=== PATIENT | male | born 1970 | race Caucasian/White ===

== ENCOUNTER 2021-07-01 00:44 | Inpatient (IN) | payer MEDICARE ==
[2021-07-01] MEDS ORDERED: Bupivacaine 0.5% 50 ML MDV ONE (06:39)
[2021-07-01] MEDS ORDERED: Lidocaine 1% with EPINEPHrine 1:100,000 50 ML MDV ONE (06:39)
[2021-07-01] MEDS ORDERED: Meropenem 500 MG SDV ONE (06:57)
[2021-07-01] MEDS ORDERED: Glycopyrrolate 0.2 MG/ML 5 ML MDV ONE (07:08)
[2021-07-01] MEDS ORDERED: Propofol 200 MG/20 ML SDV ONE (07:08)
[2021-07-01] MEDS ORDERED: Rocuronium 50 MG/5 ML Vial ONE (07:08)
[2021-07-01] MEDS ORDERED: fentaNYL 250 MCG/5 ML SDV ONE ×2 (07:08→10:17)
[2021-07-01] MEDS ORDERED: Dexamethasone 4 MG/ML SDV ONE (07:08)
[2021-07-01] MEDS ORDERED: Neostigmine Methylsulfate 1 MG/ML 5 ML Syringe ONE (07:08)
[2021-07-01] MEDS ORDERED: Ondansetron 4 MG/2 ML SDV ONE (07:08)
[2021-07-01] MEDS ORDERED: Succinylcholine 200 MG/10 ML MDV ONE (07:08)
[2021-07-01] MEDS ORDERED: Albuterol/Ipratropium 3.0-0.5 MG/3 ML Neb Soln NEB ONE ×2 (07:13→12:30)
[2021-07-01] MEDS ORDERED: Acetaminophen 500 MG Tab PO ONE (07:15)
[2021-07-01] MEDS ORDERED: Dextrose 5%-Lactated Ringers 1,000 ML IV SCH (07:15)
[2021-07-01] MEDS ORDERED: Scopolamine 1.5 MG Transdermal Patch TOP ONE (07:16)
[2021-07-01] MEDS ORDERED: cefOXitin 2 GM in Sodium Chloride 0.9% 50 ML IV ONE (07:30)
[2021-07-01] MEDS ORDERED: Ketamine 23 MG in Sodium Chloride 0.9% 19.77 ML IV SCH (08:00)
[2021-07-01] MEDS ORDERED: Ketamine 500 MG/5 ML MDV IV SCH (08:00)
[2021-07-01] MEDS ORDERED: diphenhydrAMINE 25 MG Cap PO PRN (10:26)
[2021-07-01] MEDS ORDERED: Ondansetron 4 MG/2 ML SDV IVPUSH PRN ×2 (10:26→13:00)
[2021-07-01] MEDS ORDERED: diphenhydrAMINE 50 MG/ML SDV IVPUSH PRN ×2 (10:26→13:00)
[2021-07-01] MEDS ORDERED: Naloxone 0.4 MG/ML SDV IVPUSH PRN (10:26)
[2021-07-01] MEDS ORDERED: Labetalol 20 MG/4 ML Syringe ONE (10:48)
[2021-07-01] MEDS ORDERED: Lactated Ringers 1,000 ML ONE (10:50)
[2021-07-01] MEDS: HYDROmorphone/Normal Saline 6 MG/30 ML PCA Vial IV PRN ×2 (11:46→15:14)
[2021-07-01] MEDS ORDERED: hydrOXYzine HCL 100 MG/2 ML SDV IM ONE (12:24)
[2021-07-01] MEDS ORDERED: Labetalol 20 MG/4 ML Syringe IVPUSH PRN (13:00)
[2021-07-01] MEDS ORDERED: Metoclopramide 10 MG/2 ML SDV IVPUSH PRN (13:00)
[2021-07-01] MEDS ORDERED: Albuterol/Ipratropium 3.0-0.5 MG/3 ML Neb Soln INH PRN (13:00)
[2021-07-01] MEDS ORDERED: hydrOXYzine HCL 100 MG/2 ML SDV IM PRN (13:00)
[2021-07-01] MEDS ORDERED: Acetaminophen 500 MG Tab PO PRN (13:00)
[2021-07-01] MEDS: Cyclobenzaprine 10 MG Tab PO PRN (13:36)
[2021-07-01] MEDS ORDERED: Pantoprazole 40 MG Vial IVPUSH SCH (14:00)
[2021-07-01] MEDS: Acetaminophen 500 MG Tab PO SCH ×2 (14:43→21:27)
[2021-07-01] MEDS: Sodium Ferric Gluconate Cmplex 250 MG in Sodium Chloride 0.9% 100 ML IV SCH (14:45)
[2021-07-01] MEDS: Albuterol/Ipratropium 3.0-0.5 MG/3 ML Neb Soln INH SCH ×2 (14:49→22:30)
[2021-07-01] MEDS: SCOPOLAMINE PATCH CHECK TOP SCH (15:46)
[2021-07-01] MEDS: cefOXitin 2 GM in Sodium Chloride 0.9% 50 ML IV SCH ×2 (15:46→21:26)
[2021-07-01] MEDS ORDERED: Benzocaine/Cetylpyridinium/Menthol Lozenge MUCMEM PRN (16:09)
[2021-07-01] MEDS: MVI, Adult with Vitamin K 10 ML, Thiamine 200 MG, Zinc/Copper/Manganese/Selenium 1 ML i... IV SCH ×4 (17:04)
[2021-07-01] MEDS: Heparin Sodium 5,000 Units/ML Vial SUBCUT SCH (21:26)
[2021-07-01] MEDS: Dextrose 5%-Lactated Ringers 1,000 ML IV SCH (22:47)
[2021-07-02] MEDS: HYDROmorphone/Normal Saline 6 MG/30 ML PCA Vial IV PRN (02:17)
[2021-07-02] MEDS ORDERED: Iopamidol 612 MG/ML 50 ML SDV PO STA (03:19)
[2021-07-02] MEDS: cefOXitin 2 GM in Sodium Chloride 0.9% 50 ML IV SCH ×3 (03:21→15:59)
[2021-07-02] MEDS: Dextrose 5%-Lactated Ringers 1,000 ML IV SCH (05:03)
[2021-07-02] MEDS: Acetaminophen 500 MG Tab PO SCH ×3 (06:17→22:17)
[2021-07-02] MEDS: Albuterol/Ipratropium 3.0-0.5 MG/3 ML Neb Soln INH SCH ×4 (07:17→20:16)
[2021-07-02] MEDS ORDERED: Ondansetron 4 MG Tab.DIS PO PRN (07:36)
[2021-07-02] MEDS ORDERED: diphenhydrAMINE 25 MG Cap PO PRN (07:38)
[2021-07-02] MEDS ORDERED: Naloxone 0.4 MG/ML SDV IVPUSH PRN (07:38)
[2021-07-02] MEDS ORDERED: Morphine PF 30 MG/30 ML PCA Vial IV PRN (07:38)
[2021-07-02] MEDS ORDERED: diphenhydrAMINE 50 MG/ML SDV IVPUSH PRN (07:38)
[2021-07-02] MEDS ORDERED: Ondansetron 4 MG/2 ML SDV IVPUSH PRN (07:38)
[2021-07-02] MEDS ORDERED: Dextrose 5%-Lactated Ringers 1,000 ML IV SCH (07:45)
[2021-07-02] MEDS: Heparin Sodium 5,000 Units/ML Vial SUBCUT SCH ×2 (08:05→20:16)
[2021-07-02] MEDS: Celecoxib 200 MG Cap PO SCH ×2 (08:05→20:16)
[2021-07-02] MEDS: Potassium Phos in 0.9 % NaCl 15 MMOL in Premix Bag 1 BAG IV SCH ×4 (08:14→11:02)
[2021-07-02] MEDS: SCOPOLAMINE PATCH CHECK TOP SCH (09:30)
[2021-07-02] MEDS: Pantoprazole 40 MG Tab.CR PO SCH (11:42)
[2021-07-02] MEDS: Magnesium Sulfate/Water 2 GM in Premix Bag 1 BAG IV SCH ×3 (13:10→23:51)
[2021-07-02] MEDS: Sodium Ferric Gluconate Cmplex 250 MG in Sodium Chloride 0.9% 100 ML IV SCH (14:34)
[2021-07-02] MEDS: Bisacodyl 5 MG Tab PO SCH ×2 (15:52→20:16)
[2021-07-02] MEDS: Docusate Sodium 100 MG Cap PO SCH ×2 (15:52→20:16)
[2021-07-02] MEDS: oxyCODONE 5 MG Tab PO PRN (16:36)
[2021-07-02] MEDS: MVI, Adult with Vitamin K 10 ML, Thiamine 200 MG, Zinc/Copper/Manganese/Selenium 1 ML i... IV SCH ×4 (18:45)
[2021-07-02] MEDS: hydrOXYzine HCl 25 MG Tab PO PRN (18:45)
[2021-07-02] MEDS: Cyclobenzaprine 10 MG Tab PO PRN (20:15)
[2021-07-03] MEDS: oxyCODONE 5 MG Tab PO PRN ×2 (00:38→07:40)
[2021-07-03] MEDS: Acetaminophen 500 MG Tab PO SCH (05:01)
[2021-07-03] MEDS: Magnesium Sulfate/Water 2 GM in Premix Bag 1 BAG IV SCH (05:02)
[2021-07-03] MEDS: hydrOXYzine HCl 25 MG Tab PO PRN (05:11)
[2021-07-03] MEDS: Albuterol/Ipratropium 3.0-0.5 MG/3 ML Neb Soln INH SCH (07:05)
[2021-07-03] MEDS: Pantoprazole 40 MG Tab.CR PO SCH (07:41)
[2021-07-03] MEDS: Bisacodyl 5 MG Tab PO SCH (08:29)
[2021-07-03] MEDS: Celecoxib 200 MG Cap PO SCH (08:29)
[2021-07-03] MEDS: Heparin Sodium 5,000 Units/ML Vial SUBCUT SCH (08:29)
[2021-07-03] MEDS: Docusate Sodium 100 MG Cap PO SCH (08:42)
[2021-07-03] MEDS ORDERED: Cyanocobalamin (Vitamin B12) 1,000 MCG/ML SDV IM ONE (09:00)
[2021-07-03] MEDS: SCOPOLAMINE PATCH CHECK TOP SCH (09:00)
== END 2021-07-03 09:30 | disposition home or self-care (01) | DRG 329 ==
LOC: JP.SDS 07:00 → JP.MS 12:00 → EDSTATUS 13:30
PROVIDERS: ADMIT Surgery; ATTEND Surgery
PROC: 0DS80ZZ Reposition Small Intestine, Open Approach (ICD-10-PCS; principal; 2021-07-01)
PROC: 0DB80ZZ Excision of Small Intestine, Open Approach (ICD-10-PCS; 2021-07-01)
PROC: 0DNA0ZZ Release Jejunum, Open Approach (ICD-10-PCS; 2021-07-01)
PROC: 0WQF0ZZ Repair Abdominal Wall, Open Approach (ICD-10-PCS; 2021-07-01)
PROC: 3E0M05Z Introduction of Adhesion Barrier into Peritoneal Cavity, Open Approach (ICD-10-PCS; 2021-07-01)
DX: K95.89 Other complications of other bariatric procedure (principal); K56.2 Volvulus; K56.51 Intestinal adhesions [bands], with partial obstruction; K43.0 Incisional hernia with obstruction, without gangrene; K91.2 Postsurgical malabsorption, not elsewhere classified; E53.8 Deficiency of other specified B group vitamins; J45.909 Unspecified asthma, uncomplicated; M54.12 Radiculopathy, cervical region; Z86.718 Personal history of other venous thrombosis and embolism; Z86.711 Personal history of pulmonary embolism; Z87.891 Personal history of nicotine dependence
CPT/HCPCS: 36415; 74240; 74240-26; 80053; 83735; 83880; 84100; 85025; 94640; A9270-GY; C9113; J0171; J0330; J0694; J1100; J1170; J1200; J1644; J2020; J2185; J2274; J2405; J2704; J2710; J2795; J2916; J3010; J3410; J3411; J3420; J3475; J3490; J7120; J7121; J7620; Q9967

== ENCOUNTER 2022-01-06 05:19 | Inpatient (IN) | payer MEDICARE ==
[2022-01-06] MEDS ORDERED: Acetaminophen 500 MG Tab PO ONE (06:00)
[2022-01-06] MEDS ORDERED: Dextrose 5%-Lactated Ringers 1,000 ML IV SCH (06:45)
[2022-01-06] MEDS ORDERED: Bupivacaine 0.5% 50 ML MDV ONE (06:47)
[2022-01-06] MEDS ORDERED: Meropenem 500 MG SDV ONE (06:47)
[2022-01-06] MEDS ORDERED: Lidocaine 1% with EPINEPHrine 1:100,000 50 ML MDV ONE (06:47)
[2022-01-06] MEDS ORDERED: Scopolamine 1.5 MG Transdermal Patch TOP SCH (06:51)
[2022-01-06] MEDS ORDERED: Rocuronium 50 MG/5 ML Vial ONE (07:00)
[2022-01-06] MEDS ORDERED: Albuterol/Ipratropium 3.0-0.5 MG/3 ML Neb Soln NEB ONE (07:00)
[2022-01-06] MEDS ORDERED: Succinylcholine 200 MG/10 ML MDV ONE (07:00)
[2022-01-06] MEDS ORDERED: Neostigmine Methylsulfate 1 MG/ML 5 ML Syringe ONE (07:00)
[2022-01-06] MEDS ORDERED: Propofol 200 MG/20 ML SDV ONE (07:00)
[2022-01-06] MEDS ORDERED: Dexamethasone 4 MG/ML SDV ONE (07:00)
[2022-01-06] MEDS ORDERED: Glycopyrrolate 0.2 MG/ML 5 ML MDV ONE (07:00)
[2022-01-06] MEDS ORDERED: Ondansetron 4 MG/2 ML SDV ONE (07:00)
[2022-01-06] MEDS ORDERED: fentaNYL 250 MCG/5 ML SDV ONE ×2 (07:01→07:34)
[2022-01-06] MEDS ORDERED: ceFAZolin 2 GM in Sodium Chloride 0.9% 50 ML IV ONE (07:15)
[2022-01-06] MEDS ORDERED: Ketamine 24 MG in Sodium Chloride 0.9% 19.76 ML IV SCH (07:30)
[2022-01-06] MEDS ORDERED: Ketamine 500 MG/5 ML MDV IV SCH (07:30)
[2022-01-06] MEDS ORDERED: diphenhydrAMINE 25 MG Cap PO PRN (07:51)
[2022-01-06] MEDS ORDERED: HYDROmorphone/Normal Saline 6 MG/30 ML PCA Vial IV PRN (07:51)
[2022-01-06] MEDS ORDERED: diphenhydrAMINE 50 MG/ML SDV IVPUSH PRN ×2 (07:51→12:00)
[2022-01-06] MEDS ORDERED: Naloxone 0.4 MG/ML SDV IVPUSH PRN (07:51)
[2022-01-06] MEDS ORDERED: Ondansetron 4 MG/2 ML SDV IVPUSH PRN ×2 (07:51→12:00)
[2022-01-06] MEDS ORDERED: Labetalol 20 MG/4 ML Syringe ONE (07:54)
[2022-01-06] MEDS ORDERED: Naloxone 0.4 MG/ML SDV IV PRN (08:00)
[2022-01-06] MEDS ORDERED: Linezolid 600 MG/300 ML Premix Bag IRR ONE (08:16)
[2022-01-06] MEDS ORDERED: Ketorolac 30 MG/ML SDV ONE (08:28)
[2022-01-06] MEDS ORDERED: Lactated Ringers 1,000 ML ONE (08:56)
[2022-01-06] MEDS ORDERED: hydrOXYzine HCL 100 MG/2 ML SDV IM ONE (09:27)
[2022-01-06] MEDS ORDERED: fentaNYL 50 MCG/ML SDV IVPUSH ONE (09:27)
[2022-01-06] MEDS ORDERED: Cyclobenzaprine 10 MG Tab PO PRN (11:40)
[2022-01-06] MEDS ORDERED: Labetalol 20 MG/4 ML Syringe IVPUSH PRN (12:00)
[2022-01-06] MEDS ORDERED: Metoclopramide 10 MG/2 ML SDV IVPUSH PRN (12:00)
[2022-01-06] MEDS ORDERED: Acetaminophen 500 MG Tab PO PRN (12:00)
[2022-01-06] MEDS ORDERED: Albuterol/Ipratropium 3.0-0.5 MG/3 ML Neb Soln INH PRN (12:00)
[2022-01-06] MEDS ORDERED: hydrOXYzine HCL 100 MG/2 ML SDV IM PRN (12:00)
[2022-01-06] MEDS ORDERED: Albuterol 90 MCG/6.7 GM Inhaler INH PRN (12:08)
[2022-01-06] MEDS: Acetaminophen 500 MG Tab PO SCH ×2 (13:52→21:29)
[2022-01-06] MEDS: Dextrose 5%-Lactated Ringers 1,000 ML IV SCH (13:52)
[2022-01-06] MEDS: Pantoprazole 40 MG Vial IVPUSH SCH (13:52)
[2022-01-06] MEDS: Albuterol/Ipratropium 3.0-0.5 MG/3 ML Neb Soln INH SCH ×2 (14:39→20:27)
[2022-01-06] MEDS: ceFAZolin 2 GM in Sodium Chloride 0.9% 50 ML IV SCH ×2 (15:35→21:29)
[2022-01-06] MEDS: MVI, Adult with Vitamin K 10 ML, Thiamine 200 MG, Zinc/Copper/Manganese/Selenium 1 ML i... IV SCH ×4 (17:43)
[2022-01-06] MEDS: Heparin Sodium 5,000 Units/ML Vial SUBCUT SCH (17:44)
[2022-01-06] MEDS: oxyCODONE 5 MG Tab PO PRN (20:25)
[2022-01-07] MEDS: Dextrose 5%-Lactated Ringers 1,000 ML IV SCH ×2 (01:51→11:54)
[2022-01-07] MEDS: oxyCODONE 5 MG Tab PO PRN ×2 (01:51→06:21)
[2022-01-07] MEDS: Heparin Sodium 5,000 Units/ML Vial SUBCUT SCH ×3 (01:53→17:02)
[2022-01-07] MEDS: ceFAZolin 2 GM in Sodium Chloride 0.9% 50 ML IV SCH (05:59)
[2022-01-07] MEDS: Acetaminophen 500 MG Tab PO SCH ×3 (05:59→21:31)
[2022-01-07] MEDS ORDERED: HYDROmorphone/Normal Saline 6 MG/30 ML PCA Vial IV PRN (07:15)
[2022-01-07] MEDS ORDERED: Naloxone 0.4 MG/ML SDV IVPUSH PRN (07:15)
[2022-01-07] MEDS ORDERED: Ondansetron 4 MG/2 ML SDV IVPUSH PRN (07:15)
[2022-01-07] MEDS ORDERED: diphenhydrAMINE 25 MG Cap PO PRN (07:15)
[2022-01-07] MEDS ORDERED: diphenhydrAMINE 50 MG/ML SDV IVPUSH PRN (07:15)
[2022-01-07] MEDS: Albuterol/Ipratropium 3.0-0.5 MG/3 ML Neb Soln INH SCH ×4 (07:16→21:28)
[2022-01-07] MEDS ORDERED: hydrOXYzine HCl 25 MG Tab PO PRN (07:17)
[2022-01-07] MEDS: Cyclobenzaprine 10 MG Tab PO SCH ×3 (07:55→23:15)
[2022-01-07] MEDS: predniSONE 10 MG Tab PO SCH (07:55)
[2022-01-07] MEDS: Celecoxib 200 MG Cap PO SCH ×2 (09:07→21:31)
[2022-01-07] MEDS: SCOPOLAMINE PATCH CHECK TOP SCH (09:08)
[2022-01-07] MEDS: Pantoprazole 40 MG Vial IVPUSH SCH (13:50)
[2022-01-07] MEDS: MVI, Adult with Vitamin K 10 ML, Thiamine 200 MG, Zinc/Copper/Manganese/Selenium 1 ML i... IV SCH ×4 (15:33)
[2022-01-08] MEDS: Heparin Sodium 5,000 Units/ML Vial SUBCUT SCH ×2 (01:25→09:51)
[2022-01-08] MEDS: Dextrose 5%-Lactated Ringers 1,000 ML IV SCH (01:26)
[2022-01-08] MEDS: Acetaminophen 500 MG Tab PO SCH (05:47)
[2022-01-08] MEDS: Albuterol/Ipratropium 3.0-0.5 MG/3 ML Neb Soln INH SCH (07:09)
[2022-01-08] MEDS ORDERED: oxyCODONE 5 MG Tab PO PRN (07:31)
[2022-01-08] MEDS: predniSONE 10 MG Tab PO SCH (07:46)
[2022-01-08] MEDS: Cyclobenzaprine 10 MG Tab PO SCH (07:46)
[2022-01-08] MEDS ORDERED: Cyanocobalamin (Vitamin B12) 1,000 MCG/ML SDV IM ONE (09:00)
[2022-01-08] MEDS: Celecoxib 200 MG Cap PO SCH (09:51)
[2022-01-08] MEDS: SCOPOLAMINE PATCH CHECK TOP SCH (09:52)
== END 2022-01-08 10:20 | disposition home or self-care (01) | DRG 329 ==
LOC: JP.SDS 05:19 → JP.MS 05:19 → EDSTATUS 07:15 → JP.MS 08:50
PROVIDERS: ADMIT Surgery; ATTEND Surgery
PROC: 0WUF0JZ Supplement Abdominal Wall with Synthetic Substitute, Open Approach (ICD-10-PCS; principal; 2022-01-06)
PROC: 0DS80ZZ Reposition Small Intestine, Open Approach (ICD-10-PCS; 2022-01-06)
DX: K43.0 Incisional hernia with obstruction, without gangrene (principal); K56.2 Volvulus; K42.0 Umbilical hernia with obstruction, without gangrene; D50.9 Iron deficiency anemia, unspecified; Z86.718 Personal history of other venous thrombosis and embolism; Z79.01 Long term (current) use of anticoagulants
CPT/HCPCS: 36415; 82306; 82525; 82607; 82728; 82746; 83735; 84100; 84630; 88302; 94640; A9270-GY; C1713; C1781; C9113; J0171; J0330; J0690; J1100; J1170; J1644; J1885; J2020; J2185; J2405; J2704; J2710; J2795; J3010; J3410; J3411; J3420; J3490; J7120; J7121; J7512; J7620